=== PATIENT | male | born 1945 | race Caucasian/White ===

== ENCOUNTER → 2024-11-03 12:57 | Outpatient (CLI) | payer MEDICARE, SELFPAY ==
--- NOTE | 2024-11-03 13:10 | DI.US.S_ITS ---
PROCEDURE: US PERIPH VENOUS LOW EXTREM BI INDICATIONS: Swelling of lower extremity TECHNIQUE: Real-time imaging, as well as color and pulse Doppler interrogation, were performed of the deep veins of both legs from the inguinal ligament to the popliteal fossa, with documentation of the visualized calf veins. COMPARISON: None. FINDINGS: Right: The common femoral, femoral, popliteal, and the visualized calf veins are normally compressible, and free of intraluminal thrombus. Color and pulse Doppler demonstrate normal phasic intravascular flow. There is normal augmentation response to distal compression maneuver. Left: The common femoral, femoral, popliteal, and the visualized calf veins are normally compressible, and free of intraluminal thrombus. Color and pulse Doppler demonstrate normal phasic intravascular flow. There is normal augmentation response to distal compression maneuver. IMPRESSION: No findings of deep venous thrombosis in either lower extremity. Dictated by: Humphrey Ford M.D. on 11/04/2024 at 17:24 Approved by: Humphrey Ford M.D. on 11/04/2024 at 17:25
== END ==
PROVIDERS: PCP Family Medicine; Referring Provider Internal Medicine Medical Oncology; Visit Provider Internal Medicine Medical Oncology
DX: M79.89 Other specified soft tissue disorders (principal)
CPT/HCPCS: 93970

== ENCOUNTER → 2025-02-01 09:36 | Outpatient (CLI) | payer MEDICARE, OTHER, SELFPAY ==
--- NOTE | 2025-02-01 09:39 | DI.NM.S_ITS ---
PROCEDURE: NM BONE SCAN WHOLE BODY
== END ==
LOC: NUCM 09:39
PROVIDERS: PCP Family Medicine; Referring Provider Internal Medicine Medical Oncology; Visit Provider Internal Medicine Medical Oncology
DX: C61 Malignant neoplasm of prostate (principal); C77.2 Secondary and unspecified malignant neoplasm of intra-abdominal lymph nodes
CPT/HCPCS: 78306; A9503

== ENCOUNTER → 2025-02-20 08:07 | Outpatient (CLI) | payer MEDICARE, OTHER, SELFPAY ==
--- NOTE | 2025-02-20 08:08 | DI.NM.S_ITS ---
PROCEDURE: NM EXERCISE TREADMILL NON NUC COMPARISON: None. INDICATIONS: Dyspnea/Coronary artery disease FINDINGS: Patient exercised per the standard [facility] protocol. Total exercise time was 4 minutes and 30 seconds. Test was terminated secondary to fatigue. Maximal heart rate obtained was 143 bpm which is 101% of maximum heart rate. Maximum blood pressure was 150/[place] [address]. EMILIA +12%. 7.[address] depressions noted in inferior and lateral precordial leads starting at 4 minutes [address] segment depressions then became downsloping starting at 3 minutes into recovery Janell persisted until determination of the test. No arrhythmias present. No chest pains voiced. Normal heart rate and blood pressure response to exercise. IMPRESSION: 1. Positive exercise treadmill stress test for ischemia. 2. Slightly reduced exercise capacity. *Dr. Harmon notified of these results. Dictated by: Jer Leblanc M.D. on 02/20/2025 at 17:11 Approved by: Jer Leblanc M.D. on 02/20/2025 at 17:14
--- NOTE | 2025-02-20 08:09 | DI.ECHO.S_ITS ---
[facility] : : [address] : : [place] : : [id number] : : Phone: [phone] Echocardiogram Report + + :Name: ANTWAN SALAZAR Study Date: 02/20/2025 Height: 71 in : :Hospital ReadingLocation: Weight: 180 lb: : Gender: Male BSA: 2.0 m2 : :: 1945 Age: 79 yrs BP: 98/68 mmHg: :Reason For Study: DYSPNEA, CAD : :Ordering Physician: LEIA, : :PIOTR Performed By: Yobany Mcclure : :Referring: PIOTR DUPREE : + + Interpretation Summary Normal biventricular size and systolic function. LVEF is 50 to 55%. Mild left atrial enlargement. Mild to moderate MAC. Mild aortic regurgitation. Other findings as below. Procedure: A two-dimensional transthoracic echocardiogram with color flow and Doppler was performed. The study quality was technically adequate. There is no prior echocardiogram noted for this patient. The patient was in normal sinus rhythm during the exam. Left Ventricle: The left ventricle is normal in size. There is normal left ventricular wall thickness. There is no ventricular septal defect visualized. The ejection fraction is estimated to be 50-55%. There are no focal wall motion abnormalities. Diastolic parameters suggest a relaxation abnormality of the left ventricle, consistent with probable normal filling pressures. Right Ventricle: The right ventricle is normal in size and function. Atria: The left atrium is mildly dilated. The right atrium is mildly dilated. The atrial septum is aneurysmal. There is no Doppler evidence for an interatrial shunt. Mitral Valve: There is mild to moderate mitral annular calcification. The mitral valve leaflets are mildly calcified. There is trace mitral regurgitation. Aortic Valve: The aortic valve is trileaflet. The aortic valve opens well. There is mild aortic regurgitation. Tricuspid Valve: The tricuspid valve leaflets are thin and pliable. There is a trace or physiologic amount of tricuspid regurgitation. Pulmonic Valve: The pulmonic valve is not well visualized. There is trace pulmonic regurgitation. Great Vessels: The aortic root is mildly dilated. The ascending aorta could not be visualized. The pulmonary is not well visualized. The IVC is of normal diameter and collapses greater than 50% with a sniff. This suggests a low right atrial pressure of 3 mm Hg. Pericardium/ Pleura There is no pericardial effusion. There is no pleural effusion. MMode/2D Measurements & Calculations LVIDd: 4.7 cm LVOT diam: 2.0 cm LVIDs: 3.3 cm Ao root diam: 4.3 cm FS: 28.7 % Ao Arch Diam (Prox Trans): 1.5 cm EPSS: 0.46 cm IVSd: 0.90 cm LVPWd: 0.86 cm LV de dios. diameter/BSA (cm/m^2): 2.3 LV sys. diameter/BSA (cm/m^2): 1.7 LA A2 area: 25.2 cm2 RA long axis: 5.4 cm LA A4 area: 20.9 cm2 RA area: 18.8 cm2 LA length (vol): 5.6 cm RA vol: 55.8 ml LA vol: 79.7 ml RA : 27.7 ml/m2 LA vol index: 39.5 ml/m2 IVC diam: 1.8 cm RVD1 (basal): 3.5 cm RVD2 (mid): 2.7 cm TAPSE: 2.0 cm Doppler Measurements & Calculations Ao V2 max: 104.6 cm/sec LVOT Max Quang: 83.5 cm/sec Ao V2 mean: 75.8 cm/sec LV V1 max P.8 mmHg Ao max P.4 mmHg LV V1 VTI: 20.2 cm Ao mean P.5 mmHg WILLIAM(I,D): 2.9 cm2 Ao V2 VTI: 22.8 cm WILLIAM(V,D): 2.6 cm2 sev ratio: 0.89 WILLIAM indexed to BSA (cm^2/m^2): 1.4 AI P1/2t: 416.1 msec AI dec slope: 241.2 cm/sec2 MV E max quang: 50.5 cm/sec TR max quang: 216.1 cm/sec MV A max quang: 76.4 cm/sec TR max P.7 mmHg MV E/A: 0.66 PA V2 max: 101.7 cm/sec Med Peak E' Quang: 5.5 cm/sec PA V2 mean: 76.2 cm/sec E/E' med: 9.2 PA mean P.5 mmHg Lat Peak E' Quang: 8.3 cm/sec PA pr(Accel): 44.7 mmHg E/E' lat: 6.1 E/e' average: 7.6 MV dec time: 0.22 sec SV(OT): 65.5 ml Reading Physician:12:03 PM
== END ==
LOC: NUCM 08:08
PROVIDERS: PCP Family Medicine; Referring Provider Family Medicine; Visit Provider Internal Medicine Cardiovascular Disease
DX: R94.39 Abnormal result of other cardiovascular function study (principal); I25.10 Atherosclerotic heart disease of native coronary artery without angina pectoris; I34.81 Nonrheumatic mitral (valve) annulus calcification; I35.1 Nonrheumatic aortic (valve) insufficiency; I77.810 Thoracic aortic ectasia
CPT/HCPCS: 93017; 93306